=== PATIENT | male | born 1940 | race Caucasian/White ===

== ENCOUNTER 2023-11-16 12:59 | Inpatient (IN) ==
[2023-11-16] MEDS ORDERED: Metoprolol Tartrate 5 mg VIAL 5 ml VIAL (1 mg/ml) IV PRN (14:33)
[2023-11-16] MEDS: Lactated Ringers 1000 ml BAG 1,000 ML IV SCH (16:14)
[2023-11-16] MEDS: Sulfur Hexaflouride MICROSPHR 25 MG VIAL IV ONE (16:22)
[2023-11-17] MEDS ORDERED: Sulfur Hexaflouride MICROSPHR 25 MG VIAL ONE (07:28)
[2023-11-17 07:49] LABS: ABS Eosinophils 0.1 10^3/uL (0.0-0.5); ABS Lymphocytes 1.1 10^3/uL (1.0-4.8); ABS Monocytes 0.4 10^3/uL (0.0-1.1); ABS Neutrophils 3.3 10^3/uL (1.5-7.6); Eosinophil % 1.5 %; Hematocrit 46.2 % (38-53); Hemoglobin 16.1 g/dL (13.2-16.3); Lymphocyte % 22.2 %; Mean Corpuscular Hemoglobin 32.4 pg (27-33); Mean Corpuscular Hgb Conc 34.9 g/dL (31-36); Mean Corpuscular Volume 92.8 fL (80-97); Mean Platelet Volume 8.3 fL (7.5-11.2); Nucleated Red Blood Cells % 0.1 %/100WBC (0.0-0.8); Platelet Count 147 10^3/uL (150-450); Red Blood Count 4.98 10^6/uL (4.06-5.63); Red Cell Distribution Width 13.5 % (12-17); White Blood Count 4.9 10^3/uL (3.6-10.2)
[2023-11-17 08:04] LABS: Albumin 3.6 g/dL (3.2-5.2); Albumin/Globulin Ratio 1.7 (1-3); Calcium 8.5 mg/dL (8.6-10.3); Creatinine, Serum 1.09 mg/dL (0.67-1.17); Globulin 2.1 g/dL (2-4); Magnesium 1.9 mg/dL (1.9-2.7); Total Bilirubin 0.9 mg/dL (0.2-1.0); Total Protein 5.7 g/dL (6.4-8.9); eGFR CKD-EPI 68.2 (>60)
[2023-11-18 05:38] LABS: Hematocrit 49.3 % (38-53); Hemoglobin 17.3 g/dL (13.2-16.3); Mean Corpuscular Hemoglobin 32.7 pg (27-33); Mean Corpuscular Hgb Conc 35.1 g/dL (31-36); Mean Corpuscular Volume 93.1 fL (80-97); Mean Platelet Volume 7.8 fL (7.5-11.2); Platelet Count 171 10^3/uL (150-450); Red Cell Distribution Width 13.8 % (12-17); White Blood Count 6.2 10^3/uL (3.6-10.2)
[2023-11-18 06:25] LABS: Albumin 4.1 g/dL (3.2-5.2); Albumin/Globulin Ratio 1.9 (1-3); Calcium 9.1 mg/dL (8.6-10.3); Creatinine, Serum 1.15 mg/dL (0.67-1.17); Globulin 2.2 g/dL (2-4); Potassium 4.2 mmol/L (3.5-5.0); Total Bilirubin 1.1 mg/dL (0.2-1.0); Total Protein 6.3 g/dL (6.4-8.9); eGFR CKD-EPI 63.9 (>60)
[2023-11-18] MEDS ORDERED: Regadenoson 0.4 MG/5 ML SYRINGE ONE (08:16)
[2023-11-18] MEDS ORDERED: Aminophylline 25 MG/ML VIAL ONE (08:16)
[2023-11-19 07:17] LABS: Hematocrit 47.7 % (38-53); Hemoglobin 16.6 g/dL (13.2-16.3); Mean Corpuscular Hemoglobin 32.4 pg (27-33); Mean Corpuscular Hgb Conc 34.8 g/dL (31-36); Mean Platelet Volume 7.9 fL (7.5-11.2); Platelet Count 175 10^3/uL (150-450); Red Blood Count 5.13 10^6/uL (4.06-5.63); Red Cell Distribution Width 13.7 % (12-17); White Blood Count 5.1 10^3/uL (3.6-10.2)
[2023-11-19 08:19] LABS: Calcium 8.8 mg/dL (8.6-10.3); Creatinine, Serum 1.09 mg/dL (0.67-1.17); Magnesium 1.9 mg/dL (1.9-2.7); eGFR CKD-EPI 68.2 (>60)
[2023-11-19] MEDS: Magnesium Sulfate IV 1GM/100ML 1 GM/100 ML BAG IV ONE (12:37)
[2023-11-19 14:13] LABS: High Sensitivity Troponin 1 Hr 5 pg/mL (<20)
[2023-11-19 16:53] LABS: Ferritin 157.2 ng/mL (24-336)
[2023-11-19 16:58] LABS: Folate 9.1 ng/mL (5.90-24.80)
[2023-11-20 05:22] LABS: Hematocrit 46.7 % (38-53); Mean Corpuscular Hemoglobin 32.2 pg (27-33); Mean Corpuscular Hgb Conc 34.4 g/dL (31-36); Mean Corpuscular Volume 93.7 fL (80-97); Mean Platelet Volume 8.2 fL (7.5-11.2); Platelet Count 161 10^3/uL (150-450); Red Blood Count 4.98 10^6/uL (4.06-5.63); Red Cell Distribution Width 13.8 % (12-17); White Blood Count 5.2 10^3/uL (3.6-10.2)
[2023-11-20 05:45] LABS: Calcium 8.7 mg/dL (8.6-10.3); Creatinine, Serum 1.17 mg/dL (0.67-1.17); Magnesium 2.1 mg/dL (1.9-2.7); Potassium 4.4 mmol/L (3.5-5.0); eGFR CKD-EPI 62.6 (>60)
[2023-11-20 13:57] VITALS: BP 108/76
[2023-11-22 20:44] LABS: Anaplasma phagocytophilum Negative (Negative); B. miyamotoi PCR, B Negative (Negative); Babesia divergens/MO-1 Negative (Negative); Babesia ducani Negative (Negative); Ehrlichia chaffeensis Negative (Negative); Ehrlichia ewingii/canis Negative (Negative); Ehrlichia muris eauclairensis Negative (Negative)
== END 2023-11-20 15:46 | disposition home or self-care (01) | DRG 312 ==
LOC: ED 12:59 → EDHOLD 12:59 → SUATTDRO 14:07 → MEDTELE 16:52 → SUATTDRO 11-17 07:16
PROVIDERS: ADMIT Internal Medicine; ATTEND Student in an Organized Health Care Education/Training Program